=== PATIENT | male | born 1995 | race Caucasian/White ===

== ENCOUNTER 2021-01-26 22:27 | Emergency (ER) | payer BC, SELFPAY ==
[2021-01-26 22:28] VITALS: BP 134/89; PULSE 79; RESP 16; TEMP 37.1; O2SAT 100; BMI 30.2
[2021-01-26 22:36] VITALS: O2SAT 97
--- NOTE | 2021-01-26 22:36 | EKG12_ITS ---
Test Reason : CP Blood Pressure : / mmHG Vent. Rate : 073 BPM Atrial Rate : 073 BPM P-R Int : 156 ms QRS Dur : 112 ms QT Int : 396 ms P-R-T Axes : 011 -19 008 degrees QTc Int : 436 ms Normal sinus rhythm Incomplete right bundle branch block Confirmed by ORLANDO OWEN, WINSTON ([id number]), editor department MARIA WILSON ([id number]) on 01/29/2021 8:50:51 AM Referred By: REE Confirmed By:WINSTON PERRY MD
--- NOTE | 2021-01-26 22:37 | ED.VIS.GEN ---
History of Present Illness Chief Complaint: Chest Pain Informant: Patient Onset: Today Context: Gradual Onset Current Severity: Mild Maximum Severity: Mild Narrative: Patient presents with aching midsternal chest pain that started while sitting at rest at home. He felt slightly short of breath. He states symptoms seem to be improving at this time. Nursing staff had advised me that patient had eaten spicy food earlier this evening. When I asked patient about this he states he did not really feel like he was having a lot of reflux, but did take an antacid. He did not note improvement with this. Past Medical History - Allergies and Home Meds Allergies/Adverse Reactions: Allergies No Known Allergies Allergy (Verified 01/26/21 22:32) Primary Care Physician: Marichuy Hernandez DO [Primary Care Provider] - Past Medical History: None Smoking Status: Unknown if ever smoked Review of Systems General: Denies: Chills, Fever Eyes: Denies: Visual changes - bilaterally ENT: Denies: Bilateral ear pain Cardiovascular: Reports: Chest pain Respiratory: Reports: Dyspnea. Denies: Cough Gastrointestinal: Denies: Abdominal pain, Nausea, Vomiting, Diarrhea Genitourinary: Denies: Dysuria Musculoskeletal: Denies: Extremity Pain Skin: Denies: Rash Hematologic: Denies: Easy bruising, Easy bleeding Allergy: Denies: Uticaria Physical Exam Vital Signs/Narrative: Vital Signs Temp Pulse Resp BP Pulse Ox 01/26/21 22:28 98.8 F 79 16 134/89 H 100 Inital Vital Signs reviewed: Yes General: Well nourished, Well developed Head: Normocephalic Cardiovascular: Regular rate, Regular rhythm Respiratory: No distress, CTA bilaterally Abdomen: Soft, Nontender Extremities: Nontender, No edema Skin: Normal color Neurological: Alert, Oriented x3 Psychological: Normal affect Diagnostic/Tx/Re-eval Chest X-Ray - ED: 1 View, Read by ED Physician, Normal, Heart, Lungs, Mediastinum Impressions Chest X-Ray 01/26/21 22:40 IMPRESSION: Normal x-ray examination of the chest. Electronically Signed: Carlitos Wright MD at 22:55 EDT , Service support , 01/26/21 22:40 Chest 1 View (Portable) [RAD] Stat Laboratory Results 01/26/21 01/26/21 22:30 22:30 WBC 8.0 RBC 4.89 Hgb 15.1 Hct 45.3 MCV 92.6 MCH 30.9 MCHC 33.3 RDW Std Deviation 41.7 RDW Coeff of Brent 12.1 Plt Count 277 MPV 10.7 Immature Gran % (Auto) 0.900 Neut % (Auto) 51.7 Lymph % (Auto) 34.1 [place] % (Auto) 10.7 H Eos % (Auto) 2.0 Baso % (Auto) 0.6 Absolute Neuts (auto) 4.1 Absolute Lymphs (auto) 2.72 Nucleated RBC % 0.3 Sodium 140 Potassium 3.7 Chloride 104 Carbon Dioxide 31.0 Anion Gap 5 BUN 15 Creatinine 1.07 Estim Creat Clear Calc 114.83 Est GFR (MDRD) Af Amer 107 Est GFR (MDRD) Non-Af 89 BUN/Creatinine Ratio 14.0 Glucose 96 Calcium 8.9 Troponin I < 0.015 - EKG Initial EKG Interpretation: Sinus Rhythm - Sinus at 73. No acute ischemia. - Medical Decision Making Patient did take an antiacid prior to arrival. Blood work here is unremarkable including negative troponin. Chest x-ray is normal per my interpretation. Radiologist rotation is also reviewed. EKG is unremarkable. On repeat evaluation patient is resting comfortably. Pain is significantly improved. I do not feel patient has acute coronary disease causing his pain. He was encouraged to take antacid at home. Return for worsening symptoms. Patient referred to local PCP to establish care. ED Disposition - Plan for ED Patient: Disposition: Home or Assisted Living Diagnosis: Chest pain Instructions: ED Chest Pain, Noncardiac Referrals: Marichuy Hernandez DO [Primary Care Provider] - 3-5 Days if not improving
--- NOTE | 2021-01-26 22:40 | RAD_ITS ---
STUDY: X-RAY CHEST REASON FOR EXAM: Male, 25 years old. chest pain TECHNIQUE: Single AP portable view of the chest. COMPARISON: 07/07/2015. FINDINGS: The lungs are clear and expanded. There is no demonstrated pleural abnormality. Normal size heart. Normal mediastinum and smooth. Normal visualized pulmonary arteries. Normal visualized aortic arch and descending thoracic aorta. Normal visualized thoracic spine. Normal visualized ribs, clavicles, and shoulders. There is no demonstrated abnormality of the visualized soft tissue structures of the upper abdomen. RAD/Chest 1 View (Portable) IMPRESSION: Normal x-ray examination of the chest. Electronically Signed: Carlitos Wright MD at 22:55 EDT , Service support ,
[2021-01-26 22:59] LABS: Absolute Lymphocyte Count 2.72 X10^3/uL (0.83-4.51); Absolute Neutrophil Count 4.1 X10^3/uL (2.0-7.7); Basophil# 0.05 X10^3/uL; Basophil% 0.6 % (0-1); Eosinophil# 0.16 X10^3/uL; Hematocrit 45.3 % (40-54); Hemoglobin 15.1 g/dL (13.0-16.5); Lymphocyte # 2.72 X10^3/ul (0.83-4.51); Lymphocyte % 34.1 % (19-41); Mean Corp Hgb Conc 33.3 g/dL (32-36); Mean Corpuscular Hgb 30.9 pg (27.0-32.0); Mean Corpuscular Volume 92.6 fL (80-94); Mean Platelet Vol. 10.7 fl (6.2-12.0); Monocyte# 0.85 X10^3/uL; Monocyte% 10.7 % (0-10); NRBC Flagged by Analyzer 0.3 % (0-5); Neutrophil # 4.13 X10^3/uL (2.7-7.7); Neutrophil % 51.7 % (47-70); Platelet Count 277 K/mm3 (150-450); RBC Distribution Width CV 12.1 % (11.6-14.6); RBC Distribution Width SD 41.7 fl (35.1-43.9); Red Blood Count 4.89 M/mm3 (4.6-6.2)
[2021-01-26 23:03] LABS: Anion Gap 5 (5-15); BUN 15 mg/dL (7-18); Calcium,Total 8.9 mg/dL (8.5-10.1); Chloride 104 mmol/L (98-107); Creatinine, Serum 1.07 mg/dL (0.70-1.30); EST Glomerular Filtration Rate 89 mL/min (>60); Est Glom Filt Rate - Afr Amer 107 mL/min (>60); Estimated Creatinine Clearance 114.83 ml/min; Glucose 96 mg/dL (74-106); Potassium 3.7 mmol/L (3.5-5.1); Sodium Level 140 mmol/L (136-145)
[2021-01-26 23:13] VITALS: BP 114/89; PULSE 64; RESP 15; O2SAT 96
== END 2021-01-26 23:33 | disposition home or self-care (01) ==
PROVIDERS: Emergency Provider Emergency Medicine; PCP Family Medicine
DX: R07.89 Other chest pain (principal); R07.2 Precordial pain; R06.02 Shortness of breath
CPT/HCPCS: 71045; 80048; 84484; 85025; 93005; 99285; A4216

== ENCOUNTER 2021-10-13 15:22 | Emergency (ER) | payer BC, SELFPAY ==
[2021-10-13 15:23] VITALS: BP 159/107; PULSE 82; RESP 16; TEMP 37; O2SAT 96; BMI 29.8
--- NOTE | 2021-10-13 17:01 | ED.VIS.BACK ---
HPI History of Present Illness Chief Complaint: Back Informant: patient Onset/Context/Timing Onset: Weeks Context: Gradual Onset Quality: Sharp Location: Lumbar Current Severity: Mild Maximum Severity: Mild Worsened by: improves with Movement, Bending and Lifting; worse with Night time pain Relieved by: Remaining Still Associated Symptoms Associated Symptoms: Negative for Numbness, Tingling, Radiation to Right Leg, Radiation to Left Leg, Fever, Abdominal Pain, Dysuria, Unable to Ambulate, Unable to Transfer, Urinary Retention, Urinary Incontinence, Constipation and Fecal Incontinence Narrative Narrative: 26-year-old male no seen past medical history. States he has had back pain for approximately a month. Intermittent for 2 Sehr more often than not. He denies any falls, injury or trauma no fever. No prior back history of back surgery. Denies any dysuria. No bowel or bladder incontinence. No radiation of pain to his legs or weakness or numbness in his legs. Prior similar symptoms: No Recent Illness/Hospitalization: No PFSH PFSH Medical History no medical history no medical history Home Medications No Known/Unobtainable [No Known Home Medications] 05/19/15 [History Last Taken Unknown] Allergy/AdvReac Type Severity Reaction Status Date / Time nickel Allergy Rash Verified 10/13/21 15:24 Social History Smoking Status: Unknown if ever smoked ROS ROS ED ROS Narrative Denies recent illness. Review of Systems ROS Unobtainable: Denies due to encephalopathy Constitutional Constitutional ED: Denies fever(s) Eyes Eyes: Denies change in vision ENT ENT ED: Denies ear pain or rhinorrhea Cardiovascular Cardiovascular: Denies chest pain or palpitations Respiratory/Chest Respiratory/Chest: Denies dyspnea or sputum Gastrointestinal Gastrointestinal: Denies abdominal pain, constipation, diarrhea, nausea or vomiting Genitourinary Genitourinary ED: Denies dysuria Musculoskeletal Musculoskeletal: Denies myalgias Integumentary Denies rash Neurologic Neurologic: Denies headache(s) Psychiatric Psychiatric: Denies depression Endocrine Endocrinology: Denies polyuria Hematologic/Lymphatic Hematologic/Lymphatic: Denies easy bruising Allergic/Immunologic Allergic/Immunologic ED: Denies urticaria EXAM Physical Exam Narrative Exam Narrative: 26-year male no acute stress vital signs stable afebrile. Does not look septic toxic. H EENT exam unremarkable. Neck nontender no lymphadenopathy. Lungs clear to auscultation bilaterally. Heart regular rhythm rate about 80 no murmur. Abdomen soft nontender normal bowel sounds no peritoneal signs. Moving all 4 extremities neurovascularly intact negative straight leg raise bilaterally. 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 Dorsi plantar flexion intact. No cauda equina no saddle anesthesia normal medial thigh sensation. Back exam spine nontender paralumbar soft tissue tenderness bilaterally. No ecchymosis or bruising. No redness or warmth. Neurologic exam normal. No weakness or numbness. Normal motor strength. And sensation. Const Vital Signs: 10/13/21 15:23 Temperature 98.6 F Temperature Source Temporal Pulse Rate 82 Respiratory Rate 16 Blood Pressure 159/107 H Blood Pressure Mean 124 Pulse Ox 96 Oxygen Delivery Method Room Air Positive well nourished and well developed; Negative for cachectic, contractures or unkempt General Appearance ED: well developed and NAD; Negative for unkempt, cachectic, contractures or pallor Nutritional Appearance: Negative for cachectic HEENT Reports moist mucous membranes Negative for trauma or tenderness Eyes PERRL and EOMs intact bilaterally Neck no lymphadenopathy, supple and no JVD General: Negative for tenderness Resp normal respiratory effort and clear to auscultation bilaterally Effort and Inspection: Negative for other Auscultation: Negative for rales, rhonchi, wheezes or diminished lung sounds Cardio regular rate, regular rhythm, S1 normal heart sound, S2 normal heart sound and no murmurs GI normal to inspection, nondistended, normoactive bowel sounds, soft to palpation, non-tender, non-distended and no masses Inspection: Negative for abdominal distention Palpation: Negative for tender, guarding or rebound tenderness present Back/Spine normal to inspection and no thoracic nor lumbar tenderness General Back: Negative for CVA tenderness or scar(s) Cervical Spine: Negative for cervical spine tenderness and Negative for paracervical muscle tenderness Thoracic Spine / Upper Back: paraspinal muscle tenderness Lumbar Spine / Lower Back: straight leg raise negative bilaterally; Negative for ROM limited, straight leg raise positive right or straight leg raise positive - left Neuro oriented x3 and no sensory deficits noted Sensorium / Orientation: alert; Negative for confused, lethargic or stuporous Motor Exam: strength 5/5 throughout; Negative for strength abnormal Psych mental status grossly normal Appearance: Negative for unkempt Mood & Affect: Negative for depressed or tearful Skin no rashes or lesions noted and no wounds General Skin Exam: Negative for jaundice or pallor MDM MDM MDM Narrative Medical decision making narrative: 19-year-old male with low back pain seems to be musculoskeletal in etiology para lumbar soft tissue tenderness. Treated with Motrin and Tylenol. Hot shower warm bath with massage. If not improving follow-up with his primary care physician. He has a benign exam. He has normal motor strength and sensation lower extremities. He has no history of trauma and does not need imaging at this time. Discharge Plan Triage Chief Complaint: Back ED Provider: David Adler Dx/Rx/DC Orders Clinical Impression: Acute lumbar myofascial strain Instructions: ED Back Pain (Acute or Chronic) Prescriptions: No Action No Known Home Medications RF: 0 Primary Care Provider: Marichuy Hernandez Referrals: Marichuy Hernandez DO [Primary Care Provider] - 1 Week if not improving Activity Restrictions/Additional Instructions: Check and warm bath to relax the muscles in your back. Massage. Motrin for pain and inflammation and Tylenol for pain. This should progressively improve if not follow-up with your doctor. Return if any weakness, numbness or incontinence. Disposition Disposition: Home, Self Care
== END 2021-10-13 17:20 | disposition home or self-care (01) ==
LOC: ED 17:08
PROVIDERS: Emergency Provider Emergency Medicine; PCP Family Medicine; Visit Provider Emergency Medicine
DX: S39.012A Strain of muscle, fascia and tendon of lower back, initial encounter (principal); X58.XXXA Exposure to other specified factors, initial encounter
CPT/HCPCS: 99282

== ENCOUNTER 2022-04-27 19:54 | Emergency (ER) | payer SELFPAY ==
[2022-04-27 19:55] VITALS: BP 160/109; PULSE 93; RESP 15; TEMP 36.7; O2SAT 95; BMI 27.1
[2022-04-27 19:56] VITALS: BP 160/109; PULSE 93; RESP 15; TEMP 36.7; O2SAT 95
--- NOTE | 2022-04-27 20:33 | EX.ED.DYSGE1 ---
HPI History of Present Illness Chief Complaint: Allergic Reaction Informant: patient Onset/Context/Timing Onset: Days Context: Gradual Onset Timing: Continuous Location: L hand Current Severity: Mild Associated Symptoms Associated Symptoms: blisters Narrative Narrative: Patient has blisters, redness, and swelling to his left hand. He was exposed to paint at work as well as paint thinner and rubber gloves. He has a history of contact allergies. No fever or systemic symptoms. PFSH PFSH Home Medications diphenhydramine HCl 25 mg capsule (Benadryl) 25 mg PO TID 5 days #25 caps 04/27/22 [Rx Last Taken Unknown] famotidine 20 mg tablet (Pepcid) 20 mg PO BID 5 days #10 tabs 04/27/22 [Rx Last Taken Unknown] prednisone 10 mg tablet 60 mg PO DAILY 4 days #24 tabs 04/27/22 [Rx Last Taken Unknown] Allergy/AdvReac Type Severity Reaction Status Date / Time nickel Allergy Rash Verified 04/27/22 19:56 Social History Smoking Status: Never smoker ROS ROS ED Constitutional Constitutional ED: Denies chills Eyes Eyes: Denies blurry vision ENT ENT ED: Denies ear pain Cardiovascular Cardiovascular: Denies chest pain Respiratory/Chest Respiratory/Chest: Denies cough Gastrointestinal Gastrointestinal: Denies abdominal pain Genitourinary Genitourinary ED: Denies dysuria Musculoskeletal Musculoskeletal: Denies arthralgias Integumentary Reports rash Neurologic Neurologic: Denies headache(s) Psychiatric Psychiatric: Denies anxiety Endocrine Endocrinology: Denies cold intolerance Hematologic/Lymphatic Hematologic/Lymphatic: Reports systems reviewed and no addt'l complaints, except as documented Allergic/Immunologic Allergic/Immunologic ED: Denies mouth swelling EXAM Physical Exam Const Vital Signs: 04/27/22 19:55 04/27/22 19:56 Temperature 98.1 F 98.1 F Temperature Source Temporal Temporal Pulse Rate 93 93 Respiratory Rate 15 15 Blood Pressure 160/109 H 160/109 H Blood Pressure Mean 126 126 Pulse Ox 95 95 Oxygen Delivery Method Room Air Room Air Positive well nourished and well developed General Appearance ED: well developed HEENT Reports moist mucous membranes Eyes EOMs intact bilaterally Resp normal respiratory effort Cardio regular rate Neuro oriented x3 Sensorium / Orientation: alert Psych mental status grossly normal Skin Skin Narrative: Erythematous and mildly edematous rash to his left hand with small vesicles. He also has some erythematous lesions to his flexor surfaces of his bilateral elbows. MDM MDM MDM Narrative Medical decision making narrative: Patient had no exposure to any toxins. I suspect this is an atopic dermatitis. He was treated with Benadryl, Pepcid, prednisone. Skin care instructions given. Follow-up with primary care or return if worse. Impression #1 atopic dermatitis left hand Discharge Plan Triage Chief Complaint: Allergic Reaction ED Provider: Jad Donovan Dx/Rx/DC Orders Instructions: ED Allergic Reaction Local Other Prescriptions: New prednisone 10 mg tablet 60 mg PO DAILY 4 Days Qty: 24 0RF diphenhydramine HCl [Benadryl] 25 mg capsule 25 mg PO TID 5 Days Qty: 25 0RF famotidine [Pepcid] 20 mg tablet 20 mg PO BID 5 Days Qty: 10 0RF Primary Care Provider: Marichuy Hernandez Referrals: Marichuy Hernandez DO [Primary Care Provider] - Disposition Disposition: Home, Self Care
[2022-04-27] MEDS: DiphenhydrAMINE 25 MG Capsule PO (20:46)
[2022-04-27] MEDS: Famotidine 20 MG Tablet PO (20:46)
[2022-04-27] MEDS: predniSONE 20 MG Tablet 60 MG PO (20:46)
== END 2022-04-27 20:51 | disposition home or self-care (01) ==
LOC: ED 20:49
PROVIDERS: Emergency Provider Emergency Medicine; PCP Family Medicine; Visit Provider Emergency Medicine
DX: L20.9 Atopic dermatitis, unspecified (principal); Z79.52 Long term (current) use of systemic steroids; Z79.899 Other long term (current) drug therapy
CPT/HCPCS: 99283

== ENCOUNTER 2024-01-21 07:10 | Emergency (ER) | payer BC, SELFPAY ==
[2024-01-21 07:11] VITALS: BP 164/102; PULSE 124; RESP 20; TEMP 36; O2SAT 97; BMI 34.1
--- NOTE | 2024-01-21 07:25 | EX.ED.DYSGE1 ---
HPI History of Present Illness Chief Complaint: Dizziness Informant: patient Onset/Context/Timing Onset: Days Context: Gradual Onset Timing: Continuous Current Severity: Mild Maximum Severity: Mild Narrative Narrative: 19-year-old male no stated past medical history. States since Wednesday he has not felt quite well thinks he may have picked up something. He said some dizziness. He denies room spinning. He denies any weakness in his upper or lower extremities or any problems speech or vision. He denies any falls or head injury. Denies any vomiting or diarrhea. He denies any fever. He has had some bodyaches. Denies any dysuria. No diarrhea. Prior similar symptoms: No Recent Illness/Hospitalization: No PFSH PFSH no medical history Home Medications diphenhydramine HCl 25 mg capsule (Benadryl) 25 mg PO TID 5 days #25 caps 04/27/22 [Rx Last Taken Unknown] famotidine 20 mg tablet (Pepcid) 20 mg PO BID 5 days #10 tabs 04/27/22 [Rx Last Taken Unknown] prednisone 10 mg tablet 60 mg (6 x 10 mg) PO DAILY 4 days #24 tabs 04/27/22 [Rx Last Taken Unknown] Allergy/AdvReac Type Severity Reaction Status Date / Time nickel Allergy Rash Verified 01/21/24 07:10 Social History Smoking Status: Never smoker ROS ROS ED ROS Narrative Dizziness. Body aches. Review of Systems ROS Unobtainable: Denies due to encephalopathy Constitutional Constitutional ED: Denies chills or fever(s) Eyes Eyes: Denies blurry vision ENT ENT ED: Denies ear pain, rhinorrhea or sore throat Cardiovascular Cardiovascular: Denies chest pain Respiratory/Chest Respiratory/Chest: Denies cough or dyspnea Gastrointestinal Gastrointestinal: Denies abdominal pain, constipation, diarrhea, melena, nausea or vomiting Genitourinary Genitourinary ED: Denies dysuria or hematuria Musculoskeletal Musculoskeletal: Reports myalgias; Denies arthralgias or back pain Integumentary Denies abscess or Abrasions Neurologic Neurologic: Denies headache(s), paresthesias or weakness Psychiatric Psychiatric: Denies anxiety or depression Endocrine Endocrinology: Denies cold intolerance Hematologic/Lymphatic Hematologic/Lymphatic: Reports none Allergic/Immunologic Allergic/Immunologic ED: Denies mouth swelling, tongue swelling or urticaria EXAM Physical Exam Narrative Exam Narrative: Well-appearing 28-year-old male. Vital signs are stable. He does not look septic or toxic is no distress. H EENT exam unremarkable. TMs normal bilaterally. No wax. No infection. Posterior pharynx normal. Moist weeks membranes. No facial droop. Normal speech. No trauma. Neck nontender. No lymphadenopathy no meningismus. Lungs clear to auscultation bilaterally. Heart regular rhythm rate about 105 no murmur. Chest wall and ribs nontender. Abdomen soft nontender. Back nontender. Moving all 4 extremities. 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 Dorsi plantarflexion intact. Fingertip to nose within normal limits. No drift. Patient stood up walked to the end of the room. Turned around and came back negative Romberg. His neurologic exam is completely normal. His NIH is 0. He has normal strength. Normal sensation. Normal balance. No ataxia. Const Vital Signs: 01/21/24 07:11 Temperature 96.8 F L Temperature Source Temporal Pulse Rate 124 H Respiratory Rate 20 H Blood Pressure 164/102 H Blood Pressure Mean 122 Pulse Ox 97 Oxygen Delivery Method Room Air Positive well nourished and well developed; Negative for cachectic, contractures or unkempt General Appearance ED: well developed and NAD; Negative for unkempt, cachectic, contractures, cyanotic, diaphoretic or pallor Nutritional Appearance: Negative for cachectic HEENT Reports TM's clear and moist mucous membranes Negative for trauma or tenderness Tympanic Membrane ED: Yes TM's clear Eyes PERRL and EOMs intact bilaterally General Eye ED: Negative for pale conjunctiva, scleral icterus or other Neck no lymphadenopathy, supple and no JVD General: Negative for tenderness or other Chest Wall inspection of chest normal and palpation of chest normal Chest: Negative for other Resp normal respiratory effort and clear to auscultation bilaterally Effort and Inspection: Negative for retractions Auscultation: Negative for rales, rhonchi, wheezes or diminished lung sounds Cardio regular rhythm, S1 normal heart sound, S2 normal heart sound and no murmurs; Negative for regular rate Rate: tachycardic Rhythm: Negative for abnormal rhythm GI normal to inspection, nondistended, normoactive bowel sounds, non-tender, non-distended and no masses Inspection: Negative for abdominal distention Auscultation: normoactive bowel sounds Palpation: soft; Negative for tender, guarding or rebound tenderness present Back/Spine no CVA tenderness General Back: Negative for CVA tenderness or other Cervical Spine: Negative for cervical spine tenderness Thoracic Spine / Upper Back: Negative for thoracic spinal tenderness or paraspinal muscle tenderness Lumbar Spine / Lower Back: Negative for lumbar spinal tenderness Extremity normal to inspection General Extremety ED: Negative for edema, tenderness or other findings General Extremity: Negative for edema or other findings Neuro oriented x3, CN's II-XII intact bilaterally and no sensory deficits noted Sensorium / Orientation: alert; Negative for orientation impaired, lethargic or stuporous Sensory Exam: No sensory level loss detected Motor Exam: strength 5/5 throughout; Negative for general weakness or strength abnormal Psych mental status grossly normal Appearance: Negative for unkempt Attitude: No agitated Mood & Affect: Negative for depressed, anxious or tearful Skin no rashes or lesions noted, no wounds and skin turgor normal General Skin Exam: elasticity normal; Negative for jaundice or pallor Lesions: No lesion noted Rashes: No rashes noted Trauma: Negative for abrasion Wounds: Negative for wounds noted MDM MDM MDM Narrative Medical decision making narrative: 28-year-old male complaining myalgias and some dizziness. He has a completely normal exam. There is no signs of any type of bacterial infection. He has a completely normal neurologic exam. Heart lungs are unremarkable. I think he may have onset of viral syndrome. I do not think he needs any imaging or lab work. I did review lab work he had from several years ago that was unremarkable. He is comfortable being discharged home. Off work excuse today. Fluids and rest. Follow-up if not improving or return if worse. History & Record Review Discussion w/independent historian: Patient Additional record(s) reviewed:: Prior inpatient record, Prior outpatient record, Prior ED visit and Prior labs Discharge Plan Triage Chief Complaint: Dizziness ED Provider: David Adler Dx/Rx/DC Orders Clinical Impression: Dizziness, Viral syndrome Instructions: ED Dizziness, Uncertain Cause Prescriptions: No Action prednisone 10 mg tablet 60 mg PO DAILY 4 Days Qty: 24 0RF diphenhydramine HCl [Benadryl] 25 mg capsule 25 mg PO TID 5 Days Qty: 25 0RF famotidine [Pepcid] 20 mg tablet 20 mg PO BID 5 Days Qty: 10 0RF Primary Care Provider: Marichuy Hernandez Referrals: Marichuy Hernandez, [Primary Care Provider] - 3-5 Days if not improving Activity Restrictions/Additional Instructions: Plenty of fluids and rest. Tylenol and/or Motrin for body aches. Follow-up with your doctor if not improving. Return if worse. Disposition Disposition: Home, Self Care
[2024-01-21 07:30] VITALS: BP 158/95; PULSE 114; RESP 18; TEMP 36.6; O2SAT 97
== END 2024-01-21 07:35 | disposition home or self-care (01) ==
LOC: ED 07:35
PROVIDERS: Emergency Provider Emergency Medicine; PCP Family Medicine; Visit Provider Emergency Medicine
DX: B34.9 Viral infection, unspecified (principal); R42 Dizziness and giddiness; M79.10 Myalgia, unspecified site
CPT/HCPCS: 99282